=== PATIENT | male | born 1955 | race Two or more races ===

== ENCOUNTER 2022-09-06 10:18 | Emergency (ER) | payer OTHER ==
[~2022-09-06] VITALS: Ht 170.2 cm; Wt 80.5 kg
[2022-09-06 11:33] VITALS: BP 134/80
[2022-09-06] MEDS ORDERED: DexAMETHasone SOD PHOS 10MG/1ML VIAL INJ IM ONE (11:45)
[2022-09-06] MEDS ORDERED: KETOROLAC TROMETH 60MG/2ML VIAL IM ONE (11:45)
[2022-09-06] MEDS ORDERED: IBUP800T26 PO (15:49)
[2022-09-06] MEDS ORDERED: ACET-1158 PO (15:49)
[2022-09-06] MEDS ORDERED: LORA-483 GT (15:49)
== END 2022-09-06 15:58 | disposition home or self-care (01) ==
LOC: ER 10:18
DX: J02.8 Acute pharyngitis due to other specified organisms (principal); B97.89 Other viral agents as the cause of diseases classified elsewhere; Z20.822 Contact with and (suspected) exposure to COVID-19
CPT/HCPCS: 36415; 87070; 87426; 87880; 96372; 99284; J1100; J1885

== ENCOUNTER 2023-06-11 06:56 | Emergency (ER) | payer OTHER ==
[~2023-06-11] VITALS: Ht 162.6 cm; Wt 79.6 kg
[~2023-06-11 06:56] MED LIST: ACET500T58 PO; IBUP-1455 PO; LORA-483 GT
[2023-06-11 08:20] VITALS: BP 135/78; PULSE 52; RESP 18; TEMP 97.8; O2SAT 99
[2023-06-11] MEDS ORDERED: cefTRIAXone SOD 1,000 MG VL IM ONE (08:30)
[2023-06-11] MEDS ORDERED: LIDOCAINE 1% HCL (LOCAL ANESTH.) INJ 20ML MDV IJ ONE (08:30)
[2023-06-11] MEDS ORDERED: BACDST PO (08:38)
[2023-06-11] MEDS ORDERED: ACET-1080 PO (08:38)
== END 2023-06-11 08:51 | disposition home or self-care (01) ==
LOC: ER 06:56
DX: L02.416 Cutaneous abscess of left lower limb (principal); Z79.1 Long term (current) use of non-steroidal anti-inflammatories (NSAID); Z79.899 Other long term (current) drug therapy
CPT/HCPCS: 10060; 87077; 87186; 87205; 96372; 99283; J0696; J2001

== ENCOUNTER 2023-06-13 09:07 | Emergency (ER) | payer OTHER ==
[~2023-06-13] VITALS: Ht 162.6 cm; Wt 80.0 kg
[~2023-06-13 09:07] MED LIST changes: +ACET-1080 PO; +BACDST PO
[2023-06-13 10:49] VITALS: BP 128/64; PULSE 68; RESP 18; TEMP 98.4; O2SAT 99
== END 2023-06-13 11:49 | disposition home or self-care (01) ==
LOC: ER 09:07
DX: L02.416 Cutaneous abscess of left lower limb (principal); Z79.1 Long term (current) use of non-steroidal anti-inflammatories (NSAID); Z79.899 Other long term (current) drug therapy

== ENCOUNTER 2023-06-16 08:41 | Emergency (ER) | payer OTHER ==
[~2023-06-16] VITALS: Ht 162.6 cm; Wt 79.8 kg
[2023-06-16 08:56] VITALS: BP 125/53; PULSE 64; RESP 18; TEMP 97.1; O2SAT 99
== END 2023-06-16 09:26 | disposition home or self-care (01) ==
LOC: ER 08:41
DX: L02.416 Cutaneous abscess of left lower limb (principal); Z79.1 Long term (current) use of non-steroidal anti-inflammatories (NSAID); Z79.899 Other long term (current) drug therapy